=== PATIENT | male | born 1990 | race African-American/Black ===

== ENCOUNTER 2016-10-03 16:49 | Emergency (ER) | payer OTHER ==
[2016-10-03] MEDS ORDERED: traMADol 50 MG TAB As Ordered ONE ×2 (19:16→20:32)
--- NOTE | 2016-10-03 19:43 | REP ---
Right shoulder three views : There is no fracture or dislocation. Mineralization and joint spaces are normal. There are no calcifications or foreign bodies. Impression: Negative right shoulder . Signed by Jese Tate MD 10/03/2016 07:34 P
--- NOTE | 2016-10-03 20:41 | EDDOCDS ---
Nurse's Notes [facility] Name: Sandi Mckeon Age: 25 yrs Sex: Male : 1990 Arrival Date: 10/03/2016 Time: 16:49 Bed PR Private MD: Roge - Complete Info On Cds Diagnosis: Pain in right shoulder Presentation: 10/03 17:05 Presenting complaint: Patient states: felt like he popped his shoulder out of place and hs1 his medics put shoulder back in place. Sent by Dash Barclay. Sent with out sling. Adult Sepsis Screening: The patient does not have new or worsening altered mentation. Patient's respiratory rate is less than 22. Systolic blood pressure is greater than 100. Patient has a qSOFA score of 0- Negative Sepsis Screen. Suicide/Homicide risk assessment- the patient denies having any suicidal and/or homicidal ideations and does not present with any other emotional, behavioral or mental health complaints. Status: The patient is an active duty service operations manager. Transition of care: patient was received from a primary care office; Dash barclay. 17:05 Acuity: DELMER Level 4 hs1 17:05 Method Of Arrival: Walkin/Carried/Asstd hs1 Triage Assessment: 17:07 General: Appears in no apparent distress, comfortable, Behavior is appropriate for age, hs1 cooperative. Pain: Location: anterior aspect of right shoulder Pain currently is 7 out of 10 on a pain scale. Pt Declines HIV testing. Respiratory: No deficits noted. Musculoskeletal: Range of motion limited in right shoulder due to pain. Patient states medics put shoulder in place and checked ROM. Patient states in place. Historical: - Allergies: No known drug Allergies; - Home Meds: 1. naproxen 250 mg Oral tab 2 times per day - PMHx: none; - PSHx: Knee surgery- Left; Lasik Surgery; - Social history: Smoking status: Patient states was never smoker of tobacco. No barriers to communication noted, The patient speaks fluent Swiss, Speaks appropriately for age, Preferred Language: Swiss. - Family history: Not pertinent. - : The pt / caregiver states he / she is not on anticoagulants. Home medication list is obtained from the patient. - Exposure Risk Screening:: None identified. Screenin:37 Screening information is obtained from the patient. Fall risk: No risks identified. ttb Assistance ADL's: requires no assistance with activities of daily living. Abuse/DV Screen: The patient / caregiver reports he/she is: not in a situation that causes fear, pain or injury. Nutritional screening: No deficits noted. Advance Directives: Currently, there is no health care proxy. home support is adequate. Assessment: 19:18 General: Appears in no apparent distress, uncomfortable. Pain: Location: right nn1 shoulder. Neurological: Level of Consciousness is awake, alert. Respiratory: Airway is patent Respiratory effort is even, unlabored. Derm: Skin is pink, warm & dry. Musculoskeletal: Circulation, motion, and sensation intact Capillary refill < 3 seconds Range of motion limited in right shoulder Patient reports he cannot move right arm above head. States shoulder popped out of place following a fall, reports it was popped back in place prior to arrival. Musculoskeletal: No deformity noted Swelling absent. Injury Description: pt fell. 20:37 Reassessment: Patient appears in no apparent distress at this time. pt states some ttb improvement after pain meds. Pt ready for DC.. Vital Signs: 16:51 BP 145 / 87; Pulse 72; Resp 18 S; Temp 97.4(O); Pulse Ox 99% on R/A; Weight 87.09 kg gr2 (R); Height 5 ft. 8 in. (172.72 cm) (R); Pain 5/10; 20:35 BP 138 / 79; Pulse 66; Resp 20; Temp 96.7(O); Pulse Ox 97% on R/A; Pain 7/10; jmv 16:51 Body Mass Index 29.19 (87.09 kg, 172.72 cm) gr2 Vitals: 16:51 Log In Time: October 03, 2016 at 16:51. gr2 ED Course: 16:50 Patient visited by Silvio Stanton. gr2 16:50 Other - Complete Info On Cds is Private Physician. gr2 16:50 Patient moved to Waiting gr2 16:52 Patient visited by Silvio Stanton. gr2 16:52 Patient moved to Pre RCE gr2 17:06 Triage Initiated hs1 19:01 Patient moved to Triage 3 nn1 19:07 Alonso Reagan RPA-C is PHCP. ck7 19:07 Arnulfo Quezada MD is Attending Physician. ck7 19:08 Patient visited by Alonso Reagan RPA-C. ck7 19:19 Patient moved to 4 [facility] 19:30 [facility] Payment Agreement was scanned into [employer] and attached to record. [email or web address] 20:01 Patient visited by Alonso Reagan RPA-C. ck7 20:06 Shoulder, Complete Returned. EDMS 20:28 Taz Talamantes is Referral Physician. ck7 20:30 Patient moved to PR2 / 26 nn1 20:36 Patient visited by Ronni Curz PCA. v 20:37 The patient / caregiver is instructed regarding the plan of care and ED course. ttb Accompanied by Family Member, Patient has correct armband on for positive identification. 20:37 No IV's were initiated during this patient's visit. No procedures done that require ttb assistance. Sling applied to right arm. Patient with positive distal sensation and brisk distal capillary refill after application. Administered Medications: 19:18 Drug: traMADol 50 mg [tramadol 50 mg tablet (1 tabs)] Route: PO; nn1 20:39 Follow up: Response: Confirmed pt not driving.; No Adverse Reaction; No significant ttb change. 20:37 Drug: traMADol 50mg- 4 pack 1 packets [tramadol 50 mg tablet (1 tabs)] {Co-Signature: nn1 ttb (Carolyn Cedillo RN).} Route: PO; 20:39 Follow up: Response: Med's dispensed home ttb Order Results: Radiology Order: Shoulder, Complete Test: Shoulder, Complete REASON FOR EXAMINATION: Deformity/Swelling; Right shoulder three views :; ; There is no fracture or dislocation.; ; Mineralization and joint spaces are normal.; ; There are no calcifications or foreign bodies.; ; Impression:; ; Negative right shoulder .; ; ; Signed by; Jese Tate MD 10/03/2016 07:34 P; Outcome: 20:28 Discharge ordered by Provider. ck7 20:37 Discharge Assessment: Patient awake, alert and oriented x 3. No cognitive and/or ttb functional deficits noted. Patient verbalized understanding of disposition instructions. Patient awake and alert. patient administered narcotics - yes. Pt provided with safe discharge. The following High Risk Discharge criteria are identified: None. Discharged to home ambulatory, with family. Condition: good Condition: stable Condition: improved. Discharge instructions given to patient, Instructed on discharge instructions, follow up and referral plans. medication usage, no driving heavy equipment, Rest, Ice, Compression and Elevation. no drinking with medication, Demonstrated understanding of instructions, medications, sling, RICE, no d/d with meds Pt was receptive of discharge instructions/ teaching. Prescriptions given X 1, meds dispensed home. No special radiology studies were completed. Property :Personal belongings accompany Pt. 20:39 Patient left the ED. ttb Signatures: Dispatcher [employer] EDKY Olga Lees, RN RN hs1 Alonso Reagan, RPA-C RPA-Cck7 Carolyn Cedillo RN RN ttb Silvio Stanton gr2 Navya PateRN RN nn1 Lois Graham, Reg Reg ks16 Ronni Cruz, SUPREME COURT JUSTICE SUPREME COURT JUSTICE jmv Carolyn Cedillo RN ttb MTDD
--- NOTE | 2016-10-03 20:41 | EDDOCDS ---
Physician Documentation [facility] Name: Sandi Mckeon Age: 25 yrs Sex: Male : 1990 Arrival Date: 10/03/2016 Time: 16:49 Bed PR Private MD: Other - Complete Info On Cds Disposition: 10/03/16 20:28 Discharged to Home/Self Care. Impression: Pain in right shoulder. - Condition is Stable. - Discharge Instructions: Shoulder Pain. - Prescriptions for Ibuprofen 600 mg Oral Tablet - take 1 tablet by ORAL route every 6 hours As needed take with food; 30 tablet. - Medication Reconciliation, Local Pharmacy Hours form. - Follow up: Hakan Landa, Taz; When: Tomorrow; Reason: Recheck today's complaints, Continuance of care. - Problem is new. - Symptoms have improved. - Notes: USE MEDICATIONS INSTRUCTED, FOLLOW UP WITH [facility] TOMORROW, USE SLING INSTRUCTED Historical: - Allergies: No known drug Allergies; - Home Meds: 1. naproxen 250 mg Oral tab 2 times per day - PMHx: none; - PSHx: Knee surgery- Left; Lasik Surgery; - Social history: Smoking status: Patient states was never smoker of tobacco. No barriers to communication noted, The patient speaks fluent Saudi [place], Speaks appropriately for age, Preferred Language: [place] Arabian. - Family history: Not pertinent. - : The pt / caregiver states he / she is not on anticoagulants. Home medication list is obtained from the patient. - Exposure Risk Screening:: None identified. Vital Signs: 10/03 16:51 BP 145 / 87; Pulse 72; Resp 18 S; Temp 97.4(O); Pulse Ox 99% on R/A; Weight 87.09 kg / gr2 192 lbs (R); Height 5 ft. 8 in. (172.72 cm) (R); Pain 5/10; 20:35 BP 138 / 79; Pulse 66; Resp 20; Temp 96.7(O); Pulse Ox 97% on R/A; Pain 7/10; jmv 16:51 Body Mass Index 29.19 (87.09 kg, 172.72 cm) gr2 Procedures: 20:25 Fracture care/splinting: Splint applied to right arm using sling, applied by nurse. ck7 Examined by me, post splint application: neurovascular intact, 2+ distal pulses palpable, brisk capillary refill noted, Patient tolerated well. MDM: 19:14 traMADol 50 mg PO once ordered. ck7 19:15 Shoulder, Complete Ordered. EDMS 19:30 Financial registration complete. [email or web address] 19:30 [facility] Payment Agreement was scanned into [employer] and attached to record. [email or web address] 20:25 Shoulder, Complete Reviewed. ck7 20:25 Sling ordered. ck7 20:29 traMADol 50mg- 4 pack 1 packets PO Per package directions; Dispense with patient. Take ck7 per package instructions. ordered. Administered Medications: 19:18 Drug: traMADol 50 mg [tramadol 50 mg tablet (1 tabs)] Route: PO; nn1 20:39 Follow up: Response: Confirmed pt not driving.; No Adverse Reaction; No significant ttb change. 20:37 Drug: traMADol 50mg- 4 pack 1 packets [tramadol 50 mg tablet (1 tabs)] {Co-Signature: nn1 ttb (Carolyn Cedillo RN).} Route: PO; 20:39 Follow up: Response: Med's dispensed home ttb Signatures: Dispatcher [employer] EDFL Olga Lees RN RN hs1 Alonso Reagan, CARMELITA-C RPA-Cck7 Carolyn Cedillo RN RN ttb Lois Graham, Reg Reg ks16 Navya Pate RN nn1 Carolyn Cedillo RN ttb The chart was reviewed and I authenticate all verbal orders and agree with the evaluation and treatment provided.Attachments: 19:30 [facility] Payment Agreement [email or web address] MTDD
--- NOTE | 2016-10-05 21:41 | EDDOCDS ---
Physician Documentation [facility] Name: Sandi Mckeon Age: 25 yrs Sex: Male : 1990 Arrival Date: 10/03/2016 Time: 16:49 Bed PR Private MD: Other - Complete Info On Cds Disposition: 10/03/16 20:28 Discharged to Home/Self Care. Impression: Pain in right shoulder. - Condition is Stable. - Discharge Instructions: Shoulder Pain. - Prescriptions for Ibuprofen 600 mg Oral Tablet - take 1 tablet by ORAL route every 6 hours As needed take with food; 30 tablet. - Medication Reconciliation, Local Pharmacy Hours form. - Follow up: Hakan Landa, Taz; When: Tomorrow; Reason: Recheck today's complaints, Continuance of care. - Problem is new. - Symptoms have improved. - Notes: USE MEDICATIONS INSTRUCTED, FOLLOW UP WITH [facility] TOMORROW, USE SLING INSTRUCTED Historical: - Allergies: No known drug Allergies; - Home Meds: 1. naproxen 250 mg Oral tab 2 times per day - PMHx: none; - PSHx: Knee surgery- Left; Lasik Surgery; - Social history: Smoking status: Patient states was never smoker of tobacco. No barriers to communication noted, The patient speaks fluent Armenian, Speaks appropriately for age, Preferred Language: Armenian. - Family history: Not pertinent. - : The pt / caregiver states he / she is not on anticoagulants. Home medication list is obtained from the patient. - Exposure Risk Screening:: None identified. Vital Signs: 10/03 16:51 BP 145 / 87; Pulse 72; Resp 18 S; Temp 97.4(O); Pulse Ox 99% on R/A; Weight 87.09 kg / gr2 192 lbs (R); Height 5 ft. 8 in. (172.72 cm) (R); Pain 5/10; 20:35 BP 138 / 79; Pulse 66; Resp 20; Temp 96.7(O); Pulse Ox 97% on R/A; Pain 7/10; jmv 16:51 Body Mass Index 29.19 (87.09 kg, 172.72 cm) gr2 Procedures: 20:25 Fracture care/splinting: Splint applied to right arm using sling, applied by nurse. ck7 Examined by me, post splint application: neurovascular intact, 2+ distal pulses palpable, brisk capillary refill noted, Patient tolerated well. MDM: 19:14 traMADol 50 mg PO once ordered. ck7 19:15 Shoulder, Complete Ordered. EDMS 19:30 Financial registration complete. [email or web address] 19:30 [facility] Payment Agreement was scanned into [employer] and attached to record. [email or web address] 20:25 Shoulder, Complete Reviewed. ck7 20:25 Sling ordered. ck7 20:29 traMADol 50mg- 4 pack 1 packets PO Per package directions; Dispense with patient. Take ck7 per package instructions. ordered. 10/04 10:23 T-Sheet-- Draft Copy was scanned into [employer] and attached to record. gb Administered Medications: 10/03 19:18 Drug: traMADol 50 mg [tramadol 50 mg tablet (1 tabs)] Route: PO; nn1 20:39 Follow up: Response: Confirmed pt not driving.; No Adverse Reaction; No significant ttb change. 20:37 Drug: traMADol 50mg- 4 pack 1 packets [tramadol 50 mg tablet (1 tabs)] {Co-Signature: nn1 ttb (Carolyn Cedillo RN).} Route: PO; 20:39 Follow up: Response: Med's dispensed home ttb Signatures: Dispatcher [employer] EDAK Leonora Eli, Reg Reg gb Olga Lees, RN RN hs1 Alonso Reagan, RPA-C RPA-Cck7 Carolyn Cedillo RN RN ttb Lois Graham, Reg Reg ks16 Navya Pate RN nn1 Carolyn Cedillo RN ttb The chart was reviewed and I authenticate all verbal orders and agree with the evaluation and treatment provided.Attachments: 19:30 [facility] Payment Agreement [email or web address] 10/04 10:23 T-Sheet-- Draft Copy gb Chart Complete MTDD
--- NOTE | 2016-10-05 21:41 | EDDOCDS ---
Physician Documentation [facility] Name: Sandi Mckeon Age: 25 yrs Sex: Male : 1990 Arrival Date: 10/03/2016 Time: 16:49 Bed PR Private MD: Other - Complete Info On Cds Disposition: 10/03/16 20:28 Discharged to Home/Self Care. Impression: Pain in right shoulder. - Condition is Stable. - Discharge Instructions: Shoulder Pain. - Prescriptions for Ibuprofen 600 mg Oral Tablet - take 1 tablet by ORAL route every 6 hours As needed take with food; 30 tablet. - Medication Reconciliation, Local Pharmacy Hours form. - Follow up: Hakan Landa, Taz; When: Tomorrow; Reason: Recheck today's complaints, Continuance of care. - Problem is new. - Symptoms have improved. - Notes: USE MEDICATIONS INSTRUCTED, FOLLOW UP WITH [facility] TOMORROW, USE SLING INSTRUCTED Historical: - Allergies: No known drug Allergies; - Home Meds: 1. naproxen 250 mg Oral tab 2 times per day - PMHx: none; - PSHx: Knee surgery- Left; Lasik Surgery; - Social history: Smoking status: Patient states was never smoker of tobacco. No barriers to communication noted, The patient speaks fluent Uzbek, Speaks appropriately for age, Preferred Language: Uzbek. - Family history: Not pertinent. - : The pt / caregiver states he / she is not on anticoagulants. Home medication list is obtained from the patient. - Exposure Risk Screening:: None identified. Vital Signs: 10/03 16:51 BP 145 / 87; Pulse 72; Resp 18 S; Temp 97.4(O); Pulse Ox 99% on R/A; Weight 87.09 kg / gr2 192 lbs (R); Height 5 ft. 8 in. (172.72 cm) (R); Pain 5/10; 20:35 BP 138 / 79; Pulse 66; Resp 20; Temp 96.7(O); Pulse Ox 97% on R/A; Pain 7/10; jmv 16:51 Body Mass Index 29.19 (87.09 kg, 172.72 cm) gr2 Procedures: 20:25 Fracture care/splinting: Splint applied to right arm using sling, applied by nurse. ck7 Examined by me, post splint application: neurovascular intact, 2+ distal pulses palpable, brisk capillary refill noted, Patient tolerated well. MDM: 19:14 traMADol 50 mg PO once ordered. ck7 19:15 Shoulder, Complete Ordered. EDMS 19:30 Financial registration complete. [email or web address] 19:30 [facility] Payment Agreement was scanned into [employer] and attached to record. [email or web address] 20:25 Shoulder, Complete Reviewed. ck7 20:25 Sling ordered. ck7 20:29 traMADol 50mg- 4 pack 1 packets PO Per package directions; Dispense with patient. Take ck7 per package instructions. ordered. 10/04 10:23 T-Sheet-- Draft Copy was scanned into [employer] and attached to record. gb Administered Medications: 10/03 19:18 Drug: traMADol 50 mg [tramadol 50 mg tablet (1 tabs)] Route: PO; nn1 20:39 Follow up: Response: Confirmed pt not driving.; No Adverse Reaction; No significant ttb change. 20:37 Drug: traMADol 50mg- 4 pack 1 packets [tramadol 50 mg tablet (1 tabs)] {Co-Signature: nn1 ttb (Carolyn Cedillo RN).} Route: PO; 20:39 Follow up: Response: Med's dispensed home ttb Signatures: Dispatcher [employer] EDUT Leonora Eli, Reg Reg gb Olga Lees, RN RN hs1 Alonso Reagan, RPA-C RPA-Cck7 Carolyn Cedillo RN RN ttb Lois Graham, Reg Reg ks16 Navya Pate RN nn1 Carolyn Cedillo RN ttb The chart was reviewed and I authenticate all verbal orders and agree with the evaluation and treatment provided.Attachments: 19:30 [facility] Payment Agreement [email or web address] 10/04 10:23 T-Sheet-- Draft Copy gb Chart Complete MTDD
--- NOTE | 2016-10-05 21:41 | EDDOCDS ---
Nurse's Notes [facility] Name: Sandi Mckeon Age: 25 yrs Sex: Male : 1990 Arrival Date: 10/03/2016 Time: 16:49 Bed PR Private MD: Roge - Complete Info On Cds Diagnosis: Pain in right shoulder Presentation: 10/03 17:05 Presenting complaint: Patient states: felt like he popped his shoulder out of place and hs1 his medics put shoulder back in place. Sent by Dash Barclay. Sent with out sling. Adult Sepsis Screening: The patient does not have new or worsening altered mentation. Patient's respiratory rate is less than 22. Systolic blood pressure is greater than 100. Patient has a qSOFA score of 0- Negative Sepsis Screen. Suicide/Homicide risk assessment- the patient denies having any suicidal and/or homicidal ideations and does not present with any other emotional, behavioral or mental health complaints. Status: The patient is an active duty manager of creative services. Transition of care: patient was received from a primary care office; Dash barclay. 17:05 Acuity: DELMER Level 4 hs1 17:05 Method Of Arrival: Walkin/Carried/Asstd hs1 Triage Assessment: 17:07 General: Appears in no apparent distress, comfortable, Behavior is appropriate for age, hs1 cooperative. Pain: Location: anterior aspect of right shoulder Pain currently is 7 out of 10 on a pain scale. Pt Declines HIV testing. Respiratory: No deficits noted. Musculoskeletal: Range of motion limited in right shoulder due to pain. Patient states medics put shoulder in place and checked ROM. Patient states in place. Historical: - Allergies: No known drug Allergies; - Home Meds: 1. naproxen 250 mg Oral tab 2 times per day - PMHx: none; - PSHx: Knee surgery- Left; Lasik Surgery; - Social history: Smoking status: Patient states was never smoker of tobacco. No barriers to communication noted, The patient speaks fluent [place], Speaks appropriately for age, Preferred Language: [place]. - Family history: Not pertinent. - : The pt / caregiver states he / she is not on anticoagulants. Home medication list is obtained from the patient. - Exposure Risk Screening:: None identified. Screenin:37 Screening information is obtained from the patient. Fall risk: No risks identified. ttb Assistance ADL's: requires no assistance with activities of daily living. Abuse/DV Screen: The patient / caregiver reports he/she is: not in a situation that causes fear, pain or injury. Nutritional screening: No deficits noted. Advance Directives: Currently, there is no health care proxy. home support is adequate. Assessment: 19:18 General: Appears in no apparent distress, uncomfortable. Pain: Location: right nn1 shoulder. Neurological: Level of Consciousness is awake, alert. Respiratory: Airway is patent Respiratory effort is even, unlabored. Derm: Skin is pink, warm & dry. Musculoskeletal: Circulation, motion, and sensation intact Capillary refill < 3 seconds Range of motion limited in right shoulder Patient reports he cannot move right arm above head. States shoulder popped out of place following a fall, reports it was popped back in place prior to arrival. Musculoskeletal: No deformity noted Swelling absent. Injury Description: pt fell. 20:37 Reassessment: Patient appears in no apparent distress at this time. pt states some ttb improvement after pain meds. Pt ready for DC.. Vital Signs: 16:51 BP 145 / 87; Pulse 72; Resp 18 S; Temp 97.4(O); Pulse Ox 99% on R/A; Weight 87.09 kg gr2 (R); Height 5 ft. 8 in. (172.72 cm) (R); Pain 5/10; 20:35 BP 138 / 79; Pulse 66; Resp 20; Temp 96.7(O); Pulse Ox 97% on R/A; Pain 7/10; jmv 16:51 Body Mass Index 29.19 (87.09 kg, 172.72 cm) gr2 Vitals: 16:51 Log In Time: October 03, 2016 at 16:51. gr2 ED Course: 16:50 Patient visited by Silvio Stanton. gr2 16:50 Other - Complete Info On Cds is Private Physician. gr2 16:50 Patient moved to Waiting gr2 16:52 Patient visited by Silvio Stanton. gr2 16:52 Patient moved to Pre RCE gr2 17:06 Triage Initiated hs1 19:01 Patient moved to Triage 3 nn1 19:07 Alonso Reagan RPA-C is PHCP. ck7 19:07 Arnulfo Quezada MD is Attending Physician. ck7 19:08 Patient visited by Alonso Reagan RPA-C. ck7 19:19 Patient moved to 4 [facility] 19:30 [facility] Payment Agreement was scanned into [employer] and attached to record. ks16 20:01 Patient visited by Alonso Reagan RPA-C. ck7 20:06 Shoulder, Complete Returned. EDMS 20:28 Taz Talamantes is Referral Physician. ck7 20:30 Patient moved to PR2 / 26 nn1 20:36 Patient visited by Ronni Cruz PCA. v 20:37 The patient / caregiver is instructed regarding the plan of care and ED course. ttb Accompanied by Family Member, Patient has correct armband on for positive identification. 20:37 No IV's were initiated during this patient's visit. No procedures done that require ttb assistance. Sling applied to right arm. Patient with positive distal sensation and brisk distal capillary refill after application. 10/04 10:23 T-Sheet-- Draft Copy was scanned into [employer] and attached to record. gb Administered Medications: 10/03 19:18 Drug: traMADol 50 mg [tramadol 50 mg tablet (1 tabs)] Route: PO; nn1 20:39 Follow up: Response: Confirmed pt not driving.; No Adverse Reaction; No significant ttb change. 20:37 Drug: traMADol 50mg- 4 pack 1 packets [tramadol 50 mg tablet (1 tabs)] {Co-Signature: nn1 ttb (Carolyn Cedillo RN).} Route: PO; 20:39 Follow up: Response: Med's dispensed home ttb Order Results: Radiology Order: Shoulder, Complete Test: Shoulder, Complete REASON FOR EXAMINATION: Deformity/Swelling; Right shoulder three views :; ; There is no fracture or dislocation.; ; Mineralization and joint spaces are normal.; ; There are no calcifications or foreign bodies.; ; Impression:; ; Negative right shoulder .; ; ; Signed by; Jese Tate MD 10/03/2016 07:34 P; Outcome: 20:28 Discharge ordered by Provider. ck7 20:37 Discharge Assessment: Patient awake, alert and oriented x 3. No cognitive and/or ttb functional deficits noted. Patient verbalized understanding of disposition instructions. Patient awake and alert. patient administered narcotics - yes. Pt provided with safe discharge. The following High Risk Discharge criteria are identified: None. Discharged to home ambulatory, with family. Condition: good Condition: stable Condition: improved. Discharge instructions given to patient, Instructed on discharge instructions, follow up and referral plans. medication usage, no driving heavy equipment, Rest, Ice, Compression and Elevation. no drinking with medication, Demonstrated understanding of instructions, medications, sling, RICE, no d/d with meds Pt was receptive of discharge instructions/ teaching. Prescriptions given X 1, meds dispensed home. No special radiology studies were completed. Property :Personal belongings accompany Pt. 20:39 Patient left the ED. ttb Signatures: Dispatcher [employer] EDCA Leonora Eli, Reg Reg gb Olga Lees, RN RN hs1 Alonso Reagan, RPA-C RPA-Cck7 Carolyn Cedillo RN RN ttb Silvio Stanton gr2 Navya Pate,RN RN nn1 Lois Graham, Reg Reg ks16 Ronni Cruz, VIDEO INTERN VIDEO INTERN jmv Carolyn Cedillo RN ttb Chart Complete MTDD
== END 2016-10-03 20:39 | disposition home or self-care (01) ==
LOC: M ED 16:49
DX: M25.511 Pain in right shoulder (principal); Z79.1 Long term (current) use of non-steroidal anti-inflammatories (NSAID)

== ENCOUNTER → 2017-05-23 | Outpatient (REF) | payer OTHER | LOC: M SMT 16:43 | PROVIDERS: ATTEND Urology | DX: Z30.2 Encounter for sterilization (principal) ==